=== PATIENT | male | born 1985 | race Caucasian/White ===

== ENCOUNTER 2017-02-13 14:04 | Emergency (ER) | payer OTHER | END 2017-02-13 15:54 | disposition home or self-care (01) | LOC: ER1 14:04 | DX: L25.9 Unspecified contact dermatitis, unspecified cause (principal); L50.9 Urticaria, unspecified; F17.290 Nicotine dependence, other tobacco product, uncomplicated | CPT/HCPCS: 96372; 99282; J1100 ==

== ENCOUNTER 2021-08-08 20:22 | Inpatient (IN) | payer OTHER ==
[~2021-08-08] VITALS: Ht 180.3 cm; Wt 111.1 kg
[~2021-08-08 20:22] MED LIST: AUGMENTIN 875-1 EACH PO; CIPRODEX OTIC7.5 ML EARLF; NORCO 5-325 TA1 EACH PO
[2021-08-08 20:55] LABS: HEMOGLOBIN 15.6 gm/dl (14.0-17.5); RED BLOOD COUNT 5.01 M/UL (4.20-5.50); WHITE BLOOD COUNT 9.1 K/UL (4.5-11.0)
[2021-08-08 21:11] LABS: BUN/CREATININE RATIO 12 (0-10)
[2021-08-09] MEDS ORDERED: KEFLEX CAP 250250 MG PO (09:48)
[2021-08-09] MEDS ORDERED: ROXICODONE TAB 55 MG GT (09:48)
[2021-08-10] MEDS ORDERED: FLU VACCINE IM (10:24)
[2021-08-10] MEDS ORDERED: ENOXAPARIN40 MG/0.4 SC (10:24)
== END 2021-08-10 16:35 | disposition home or self-care (01) | DRG 494 ==
LOC: ER1 20:22 → CDU 22:39 → MED SURG 4 08-09 14:43
PROVIDERS: Family Medicine; ADMIT Orthopaedic Surgery
PROC: 2W3RX1Z Immobilization of Left Lower Leg using Splint (ICD-10-PCS; 2021-08-09)
PROC: 0QSH04Z Reposition Left Tibia with Internal Fixation Device, Open Approach (ICD-10-PCS; principal; 2021-08-09 12:13)
DX: S82.152B Displaced fracture of left tibial tuberosity, initial encounter for open fracture type I or II (principal); I10 Essential (primary) hypertension; F19.10 Other psychoactive substance abuse, uncomplicated; Z20.822 Contact with and (suspected) exposure to COVID-19; F17.210 Nicotine dependence, cigarettes, uncomplicated; W34.09XA Accidental discharge from other specified firearms, initial encounter; Z56.0 Unemployment, unspecified
CPT/HCPCS: 71045; 73564; 73590; 73700; 76000; 80053; 80307; 81001; 82962; 85025; 85610; 86850; 86900; 86901; 90471; 90715; 96374; 96375; 96376; 97116; 97161; 97166; 99285; C1713; G0480; J0690; J1100; J1170; J1650; J2001; J2270; J2405; J2704; J2710; J3010; J7120; U0002

== ENCOUNTER 2021-09-04 11:44 | Emergency (ER) | payer OTHER ==
[~2021-09-04 11:44] MED LIST changes: +ENOXAPARIN40 MG/0.4 SC; +FLU VACCINE IM; +KEFLEX CAP 250250 MG PO; +ROXICODONE TAB 55 MG GT
[2021-09-04 12:41] LABS: HEMOGLOBIN 15.2 gm/dl (14.0-17.5); RED BLOOD COUNT 4.98 M/UL (4.20-5.50); WHITE BLOOD COUNT 6.6 K/UL (4.5-11.0)
[2021-09-04] MEDS ORDERED: ZOFRAN ODT 4 MG4 MG SL (14:30)
[2021-09-04] MEDS ORDERED: TORADOL 10 MG T10 MG PO (14:30)
== END 2021-09-04 14:49 | disposition home or self-care (01) ==
LOC: ER1 11:44
PROVIDERS: Physician Assistant
DX: N13.2 Hydronephrosis with renal and ureteral calculous obstruction (principal); F17.200 Nicotine dependence, unspecified, uncomplicated
CPT/HCPCS: 80053; 81001; 85025; 96374; 96375; 99284; J1170

== ENCOUNTER 2021-09-23 03:10 | Emergency (ER) | payer OTHER ==
[~2021-09-23 03:10] MED LIST changes: +TORADOL 10 MG T10 MG PO; +ZOFRAN ODT 4 MG4 MG SL
[2021-09-23 03:30] LABS: HEMOGLOBIN 15.5 gm/dl (14.0-17.5); RED BLOOD COUNT 5.12 M/UL (4.20-5.50); WHITE BLOOD COUNT 11.2 K/UL (4.5-11.0)
[2021-09-23 03:53] LABS: BUN/CREATININE RATIO 12 (0-10)
[2021-09-23] MEDS ORDERED: LODINE CAP 300300 MG PO (04:46)
[2021-09-23] MEDS ORDERED: ZOFRAN ODT 4 MG4 MG PO (04:46)
== END 2021-09-23 05:45 | disposition home or self-care (01) ==
LOC: ER1 03:10
PROVIDERS: Physician Assistant
DX: M25.511 Pain in right shoulder (principal); R11.2 Nausea with vomiting, unspecified; F17.210 Nicotine dependence, cigarettes, uncomplicated
CPT/HCPCS: 23650; 71045; 73030; 80053; 80307; 81001; 82550; 82553; 83874; 84484; 85025; 87086; 93005; 96374; 96375; 99284; J1170; J2270; J2405; J2704

== ENCOUNTER → 2022-03-04 | Outpatient (CLI) | payer OTHER ==
[~2022-03-04] MED LIST changes: +LODINE CAP 300300 MG PO; +ZOFRAN ODT 4 MG4 MG PO
== END ==
LOC: RAD 09:00
DX: M75.121 Complete rotator cuff tear or rupture of right shoulder, not specified as traumatic (principal); S43.401A Unspecified sprain of right shoulder joint, initial encounter
CPT/HCPCS: 73040; 73222; A9577; Q9967

== ENCOUNTER → 2022-03-19 | Day surgery (SDC) | payer OTHER ==
[~2022-03-19] VITALS: Ht 180.3 cm; Wt 105.7 kg
[~2022-03-19] MED LIST changes: +BUPRENORPHINE-1 EACH SL; +IBUPROFEN200 MG PO
== END | disposition home or self-care (01) ==
LOC: OR 08:32
DX: T84.84XA Pain due to internal orthopedic prosthetic devices, implants and grafts, initial encounter (principal); M25.311 Other instability, right shoulder; S43.431A Superior glenoid labrum lesion of right shoulder, initial encounter; F17.290 Nicotine dependence, other tobacco product, uncomplicated; Z20.822 Contact with and (suspected) exposure to COVID-19
CPT/HCPCS: 73560; 76000; J0690; J1100; J1200; J2001; J2250; J2405; J2550; J2704; J3010; J7120